=== PATIENT | male | born 1990 | race African-American/Black ===

== ENCOUNTER 2018-01-04 12:06 | Emergency (ER) | payer SELFPAY | END 2018-01-04 13:13 | disposition home or self-care (01) | LOC: ER 13:13 | DX: K13.0 Diseases of lips (principal); F17.210 Nicotine dependence, cigarettes, uncomplicated | CPT/HCPCS: 10060; 99283 ==

== ENCOUNTER 2020-04-09 21:21 | Emergency (ER) | payer SELFPAY ==
[~2020-04-09] VITALS: Ht 172.7 cm; Wt 60.0 kg
[~2020-04-09 21:21] MED LIST: SULF1TAB24 PO
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
[2020-04-09] MEDS ORDERED: DIPH,PERTUSS(ACELL),TET VAC/PF 0.5 ML SYRINGE. VAX IM ONE (22:15)
--- NOTE | 2020-04-09 23:04 | RAD ---
Exam: Right toes 3 views INDICATION: Injury, pain TECHNIQUE: Frontal, lateral and oblique views of the toes. Comparisons: None FINDINGS: There is a mildly displaced fracture involving the distal phalanx of the fifth digit with mild surrounding soft tissue swelling. No other fractures are seen. Joint spaces are well-maintained. IMPRESSION: Mildly displaced fracture involving the distal phalanx fifth digit. Electronically signed by: Abhilash Amanda MD (04/09/2020 11:02 PM) [id number]
--- NOTE | 2020-04-09 23:09 | RAD ---
Left hand 3 views. HISTORY: Injury, pain 3 views were taken of the left hand. There is an old healed fracture of the distal phalanx of the left fifth finger. There is no acute fracture or acute osseous abnormality. IMPRESSION: 1. No acute fracture noted in the left hand. 2. Old healed distal phalanx fracture of the left fifth finger. Electronically signed by: Giancarlo Bowman MD (04/09/2020 11:06 PM) [id number]
[2020-04-09] MEDS ORDERED: TRAM-48 PO (23:22)
[2020-04-09] MEDS ORDERED: CEPH-264 PO (23:22)
[2020-04-09] MEDS ORDERED: ceFAZolin IM 1 GM VIAL IM ONE (23:30)
[2020-04-09] MEDS ORDERED: traMADol 50 MG TABLET ONE (23:52)
[2020-04-10] MEDS ORDERED: traMADol 50 MG TABLET PO ONE
[2020-04-10] MEDS ORDERED: LIDOCAINE 1% PF 2 ML VIAL. INJ ONE
[2020-04-10] MEDS ORDERED: LIDOCAINE 1% Multi-Dose 20 ML VIAL. ONE (00:07)
[2020-04-10 01:00] VITALS: BP 115/78
[2020-04-10] MEDS ORDERED: ONDA4TAB7 PO (17:03)
== END 2020-04-10 01:05 | disposition home or self-care (01) ==
LOC: ER 21:21 → EEVIPCON 21:21 → ER 04-10 01:05
DX: S92.532B Displaced fracture of distal phalanx of left lesser toe(s), initial encounter for open fracture (principal); S60.415A Abrasion of left ring finger, initial encounter; S60.417A Abrasion of left little finger, initial encounter; S50.312A Abrasion of left elbow, initial encounter; S10.91XA Abrasion of unspecified part of neck, initial encounter; F17.200 Nicotine dependence, unspecified, uncomplicated; Y08.89XA Assault by other specified means, initial encounter; Y93.9 Activity, unspecified; Y92.89 Other specified places as the place of occurrence of the external cause; Y99.8 Other external cause status
CPT/HCPCS: 73130; 73660; 90471; 90715; 96372; 99285; J0690

== ENCOUNTER 2020-04-10 15:21 | Emergency (ER) | payer SELFPAY ==
[~2020-04-10] VITALS: Ht 172.7 cm; Wt 68.1 kg
[~2020-04-10 15:21] MED LIST changes: +CEPH-264 PO; +TRAM-48 PO
[2020-04-10] MEDS ORDERED: ONDANSETRON PF 4 MG/2 ML VIAL. IVP ONE (16:00)
[2020-04-10] MEDS ORDERED: IV NORMAL SALINE 1000ML BAG 1,000 ML IV ONE (16:00)
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
[2020-04-10 16:09] LABS: BASO # 0.1 x10^3/uL (0.0-0.2); BASO % 1 % (0-3); EOS # 0.1 x10^3/uL (0.0-0.7); EOS % 1 % (0-3); HEMATOCRIT 42.6 % (39.0-53.0); HEMOGLOBIN 14.4 g/dL (13.0-17.5); LYMPH # 1.6 x10^3/uL (1.0-4.8); LYMPH % 12 % (24-48); MEAN CORPUSCULAR HEMOGLOBIN 32 pg (25-35); MEAN CORPUSCULAR HGB CONC 34 g/dL (31-37); MEAN CORPUSCULAR VOLUME 94 fL (79-100); MONO # 1.3 x10^3/uL (0.0-1.1); MONO % 10 % (0-9); NEUT # 9.8 x10^3/uL (1.8-7.7); NEUT % 76 % (31-73); PLATELET COUNT 286 x10^3/uL (140-400); RED BLOOD COUNT 4.56 x10^6/uL (4.30-5.70); WHITE BLOOD COUNT 12.9 x10^3/uL (4.0-11.0)
[2020-04-10 16:24] LABS: ALBUMIN 4.5 g/dL (3.4-5.0); ALBUMIN/GLOBULIN RATIO 1.4 (1.0-1.7); CALCIUM 9.4 mg/dL (8.5-10.1); CREATININE 2.4 mg/dL (0.7-1.3); GFR 38.4; TOTAL BILIRUBIN 0.7 mg/dL (0.2-1.0); TOTAL PROTEIN 7.8 g/dL (6.4-8.2)
[2020-04-10 16:27] VITALS: BP 137/80
[2020-04-10 16:27] LABS: POTASSIUM 2.9 mmol/L (3.5-5.1)
[2020-04-10] MEDS ORDERED: POTASSIUM CHLORIDE 20 MEQ TABLET.ER. PO ONE (16:30)
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
[2020-04-10] MEDS ORDERED: ONDA4TAB7 PO (17:03)
== END 2020-04-10 17:23 | disposition home or self-care (01) ==
LOC: ER 15:21
DX: R11.2 Nausea with vomiting, unspecified (principal); E87.6 Hypokalemia; F17.200 Nicotine dependence, unspecified, uncomplicated
CPT/HCPCS: 36415; 70450; 71046; 80053; 83690; 85025; 96361; 96374; 99285; J2405; J7030

== ENCOUNTER 2022-02-05 16:15 | Emergency (ER) | payer SELFPAY ==
[~2022-02-05] VITALS: Ht 170.2 cm; Wt 68.2 kg
[~2022-02-05 16:15] MED LIST changes: +ONDA4TAB7 PO
[2022-02-05] MEDS: hydrOXYzine 25 MG TABLET PO PRN (18:27)
[2022-02-05 19:27] VITALS: BP 116/63
[2022-02-05 19:36] LABS: BASO # 0.1 x10^3/uL (0.0-0.2); BASO % 1 % (0-3); EOS # 0.1 x10^3/uL (0.0-0.7); EOS % 1 % (0-3); HEMATOCRIT 39.5 % (39.0-53.0); HEMOGLOBIN 13.4 g/dL (13.0-17.5); LYMPH # 2.4 x10^3/uL (1.0-4.8); LYMPH % 33 % (24-48); MEAN CORPUSCULAR HEMOGLOBIN 32 pg (25-35); MEAN CORPUSCULAR HGB CONC 34 g/dL (31-37); MEAN CORPUSCULAR VOLUME 93 fL (79-100); MONO # 0.5 x10^3/uL (0.0-1.1); MONO % 7 % (0-9); NEUT # 4.2 x10^3/uL (1.8-7.7); NEUT % 58 % (31-73); PLATELET COUNT 225 x10^3/uL (140-400); RED BLOOD COUNT 4.25 x10^6/uL (4.30-5.70); RED CELL DISTRIBUTION WIDTH 14.5 % (11.5-14.5); WHITE BLOOD COUNT 7.4 x10^3/uL (4.0-11.0)
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
[2022-02-05 19:48] LABS: CALCIUM 9.1 mg/dL (8.5-10.1); CREATININE 0.9 mg/dL (0.7-1.3); GFR 117.6; POTASSIUM 4.5 mmol/L (3.5-5.1)
[2022-02-05 19:53] LABS: ALBUMIN/GLOBULIN RATIO 1.3 (1.0-1.7); TOTAL BILIRUBIN 0.2 mg/dL (0.2-1.0); TOTAL PROTEIN 7.2 g/dL (6.4-8.2)
[2022-02-05] MEDS ORDERED: HYDR25TA PO (20:00)
--- NOTE | 2022-02-05 21:52 | EKG ---
[facility] [address] [place] [address] Test Date: 2022-02-05 Test Time: 18:32:24 Pat Name: VERENICE LEE Department: Room: Gender: M Disability Specialist: : [id number] Requested By: ELIANA NARANJO Order Number: [id number] Reading MD: Cisco Dhaliwal Measurements Intervals [place] Rate: 61 P: 47 NC: 120 QRS: 59 QRSD: 70 T: 64 QT: 378 QTc: 382 Interpretive Statements SINUS RHYTHM MILD NON SPECIFIC ST CHANGES Electronically Signed On 02-07-2022 16:52:42 CDT by Cisco Dhaliwal
== END 2022-02-05 20:12 | disposition home or self-care (01) ==
LOC: ER 16:15
DX: R20.2 Paresthesia of skin (principal); F41.8 Other specified anxiety disorders; F43.0 Acute stress reaction; F17.200 Nicotine dependence, unspecified, uncomplicated; Z88.8 Allergy status to other drugs, medicaments and biological substances
CPT/HCPCS: 36415; 80053; 84484; 85025; 93005; 99284